=== PATIENT | female | born 1990 | race Caucasian/White ===

== ENCOUNTER 2017-07-23 21:59 | Emergency (ER) | payer MEDICAID ==
[~2017-07-23] VITALS: Ht 170.2 cm; Wt 84.9 kg
[2017-07-23 22:04] VITALS: BP 159/90
== END 2017-07-23 22:37 | disposition home or self-care (01) ==
LOC: ED 22:29
DX: S00.03XA Contusion of scalp, initial encounter (principal); E05.90 Thyrotoxicosis, unspecified without thyrotoxic crisis or storm; W01.0XXA Fall on same level from slipping, tripping and stumbling without subsequent striking against object, initial encounter; Y93.89 Activity, other specified; Y92.098 Other place in other non-institutional residence as the place of occurrence of the external cause; Y99.8 Other external cause status
CPT/HCPCS: 99281

== ENCOUNTER 2017-11-05 05:24 | Emergency (ER) | payer MEDICAID ==
[~2017-11-05] VITALS: Ht 170.2 cm; Wt 93.8 kg
[2017-11-05] MEDS ORDERED: PRENATAL VITAMINS (05:34)
[2017-11-05] MEDS ORDERED: AMOXICILLIN (05:34)
[2017-11-05 06:18] VITALS: BP 131/74
== END 2017-11-05 06:20 | disposition home or self-care (01) ==
LOC: ED 05:52
DX: O99.512 Diseases of the respiratory system complicating pregnancy, second trimester (principal); J02.0 Streptococcal pharyngitis; R59.1 Generalized enlarged lymph nodes; Z3A.18 18 weeks gestation of pregnancy
CPT/HCPCS: 99281

== ENCOUNTER 2017-12-22 11:02 | Outpatient (CLI) | payer MEDICAID ==
[~2017-12-22] VITALS: Ht 170.2 cm; Wt 102.7 kg
[~2017-12-22 11:02] MED LIST: AMOXICILLIN; PRENATAL VITAMINS
[2017-12-22 11:14] VITALS: BP 131/76
[2017-12-22 11:43] LABS: BASOPHILS # (AUTO) 0.07 x10^3/uL (0-0.1); BASOPHILS % (AUTO) 1 % (0-1); EOSINOPHILS # (AUTO) 0.08 x10^3/uL (0-0.4); EOSINOPHILS % (AUTO) 1 % (1-7); LYMPHOCYTES % (AUTO) 17 % (22-44); MD NO; MEAN CORPUSCULAR HEMOGLOBIN 27.9 pg (27.0-34.8); MEAN CORPUSCULAR HGB CONC 33.5 g/dL (32.4-35.8); MEAN CORPUSCULAR VOLUME 83.4 fL (80-100); MEAN PLATELET VOLUME 8.3 fL (7.4-10.4); MONOCYTES # (AUTO) 0.69 x10^3/uL (0.2-0.8); MONOCYTES % (AUTO) 5 % (2-9); NEUTROPHILS # (AUTO) 10.14 x10^3/uL (1.8-6.8); NEUTROPHILS % (AUTO) 76 % (42-75); PLATELET COUNT 272 x10^3/uL (130-400); RED BLOOD COUNT 4.48 x10^6/uL (3.82-5.3); RED CELL DISTRIBUTION WIDTH 13.8 % (9.6-15.2)
[2017-12-22] MEDS ORDERED: PREN1TAB60 PO (11:52)
[2017-12-22 11:54] LABS: ALANINE AMINOTRANSFERASE 17 U/L (12-78); ALBUMIN 2.8 g/dL (3.4-5.0); ANION GAP 7 mmol/L (5-15); CHLORIDE 108 mmol/L (98-107); CREATININE 0.47 mg/dL (0.55-1.02)
[2017-12-22 11:55] LABS: BILIRUBIN, DIRECT < 0.1 mg/dL (0.1-0.2)
[2017-12-22 11:57] LABS: ALKALINE PHOSPHATASE 83 U/L (45-117); BILIRUBIN,TOTAL 0.2 mg/dL (0.2-1.0)
== END 2017-12-22 13:13 | disposition home or self-care (01) ==
LOC: LDOP 11:02
PROVIDERS: ATTEND Obstetrics & Gynecology
DX: Z34.82 Encounter for supervision of other normal pregnancy, second trimester (principal); Z3A.24 24 weeks gestation of pregnancy
CPT/HCPCS: 36415; 59025; 80053; 81050; 82248; 82570; 83615; 84156; 84550; 85025; 99211; G0463

== ENCOUNTER 2018-03-30 11:16 | Outpatient (CLI) | payer MEDICAID ==
[~2018-03-30] VITALS: Ht 170.2 cm; Wt 121.8 kg
[~2018-03-30 11:16] MED LIST changes: +PREN1TAB60 PO
[2018-03-30 11:53] VITALS: BP 139/90
[2018-03-30 12:17] LABS: BASOPHILS # (AUTO) 0.12 x10^3/uL (0-0.1); BASOPHILS % (AUTO) 1 % (0-1); EOSINOPHILS # (AUTO) 0.11 x10^3/uL (0-0.4); EOSINOPHILS % (AUTO) 1 % (1-7); LYMPHOCYTES # (AUTO) 2.28 x10^3/uL (1-3.4); LYMPHOCYTES % (AUTO) 21 % (22-44); MD NO; MEAN CORPUSCULAR HEMOGLOBIN 27.2 pg (27.0-34.8); MEAN CORPUSCULAR HGB CONC 33.8 g/dL (32.4-35.8); MEAN CORPUSCULAR VOLUME 80.3 fL (80-100); MEAN PLATELET VOLUME 9.1 fL (7.4-10.4); MONOCYTES # (AUTO) 0.72 x10^3/uL (0.2-0.8); MONOCYTES % (AUTO) 7 % (2-9); NEUTROPHILS # (AUTO) 7.45 x10^3/uL (1.8-6.8); NEUTROPHILS % (AUTO) 70 % (42-75); PLATELET COUNT 326 x10^3/uL (130-400); RED CELL DISTRIBUTION WIDTH 14.9 % (9.6-15.2)
[2018-03-30 12:26] LABS: MICROSCOPIC NOT IND
[2018-03-30 12:27] LABS: ALANINE AMINOTRANSFERASE 15 U/L (12-78); ALBUMIN 2.3 g/dL (3.4-5.0); ANION GAP 12 mmol/L (5-15); CALCIUM 8.5 mg/dL (8.5-10.1); CHLORIDE 105 mmol/L (98-107); CREATININE 0.75 mg/dL (0.55-1.02)
[2018-03-30 12:44] LABS: ALKALINE PHOSPHATASE 188 U/L (45-117); BILIRUBIN,TOTAL 0.2 mg/dL (0.2-1.0); TOTAL PROTEIN 6.9 g/dL (6.4-8.2)
[2018-03-30 12:45] LABS: BILIRUBIN, DIRECT < 0.1 mg/dL (0.1-0.2)
[2018-03-31] MEDS ORDERED: RANI150T23 PO (15:29)
== END 2018-03-30 14:20 | disposition home or self-care (01) ==
LOC: LDOP 11:16
PROVIDERS: ATTEND Obstetrics & Gynecology
DX: O13.3 Gestational [pregnancy-induced] hypertension without significant proteinuria, third trimester (principal); Z3A.00 Weeks of gestation of pregnancy not specified
CPT/HCPCS: 36415; 59025; 80053; 81003; 82248; 82570; 83615; 84156; 84550; 85025; 99211; G0463

== ENCOUNTER 2018-03-31 11:17 | Inpatient (IN) | payer MEDICAID ==
[~2018-03-31] VITALS: Ht 170.2 cm; Wt 122.0 kg
[2018-03-31] MEDS ORDERED: OXYTOCIN 30U/ 0.9% NaCL 500ML 500 ML IV SCH (13:13)
[2018-03-31] MEDS ORDERED: NEWBORN KIT ONE ×2 (13:15)
[2018-03-31 13:19] VITALS: BP 157/104
[2018-03-31] MEDS ORDERED: LACTATED RINGERS 1,000 ML IVBOLUS ONE (13:30)
[2018-03-31] MEDS ORDERED: METOCLOPRAMIDE 5 MG/ML, 2ML IV ONE (13:30)
[2018-03-31] MEDS ORDERED: SODIUM CITRATE/CITRIC ACID 30 ML UDC PO ONE (13:30)
[2018-03-31] MEDS: LACTATED RINGERS 1,000 ML IV SCH ×4 (13:48→20:05)
[2018-03-31 14:01] LABS: BASOPHILS # (AUTO) 0.03 x10^3/uL (0-0.1); BASOPHILS % (AUTO) 0 % (0-1); EOSINOPHILS # (AUTO) 0.06 x10^3/uL (0-0.4); EOSINOPHILS % (AUTO) 1 % (1-7); LYMPHOCYTES # (AUTO) 2.17 x10^3/uL (1-3.4); LYMPHOCYTES % (AUTO) 18 % (22-44); MD NO; MEAN CORPUSCULAR HGB CONC 33.4 g/dL (32.4-35.8); MEAN CORPUSCULAR VOLUME 80.8 fL (80-100); MEAN PLATELET VOLUME 8.8 fL (7.4-10.4); MONOCYTES # (AUTO) 0.75 x10^3/uL (0.2-0.8); MONOCYTES % (AUTO) 6 % (2-9); NEUTROPHILS # (AUTO) 9.12 x10^3/uL (1.8-6.8); NEUTROPHILS % (AUTO) 75 % (42-75); PLATELET COUNT 332 x10^3/uL (130-400); RED CELL DISTRIBUTION WIDTH 14.5 % (9.6-15.2)
[2018-03-31 14:10] LABS: ALANINE AMINOTRANSFERASE 14 U/L (12-78); ALBUMIN 2.6 g/dL (3.4-5.0); ANION GAP 11 mmol/L (5-15); CALCIUM 8.3 mg/dL (8.5-10.1); CHLORIDE 109 mmol/L (98-107)
[2018-03-31] MEDS ORDERED: SODIUM CITRATE/CITRIC ACID 30 ML UDC ONE (14:13)
[2018-03-31] MEDS ORDERED: METOCLOPRAMIDE 5 MG/ML, 2ML ONE (14:13)
[2018-03-31 14:15] LABS: ALKALINE PHOSPHATASE 203 U/L (45-117); BILIRUBIN,TOTAL 0.4 mg/dL (0.2-1.0); TOTAL PROTEIN 7.2 g/dL (6.4-8.2)
[2018-03-31] MEDS ORDERED: OXYTOCIN 30U/ 0.9% NaCL 500ML 500 ML ONE (14:17)
[2018-03-31 14:21] LABS: BILIRUBIN, DIRECT < 0.1 mg/dL (0.1-0.2)
[2018-03-31] MEDS ORDERED: OXYTOCIN 10 UNITS/ML, 1ML ONE (15:03)
[2018-03-31] MEDS ORDERED: EPHEDRINE 50 MG/ML, 1ML ONE (15:03)
[2018-03-31] MEDS ORDERED: CEFAZOLIN 1,000 MG ONE (15:03)
[2018-03-31] MEDS ORDERED: EPINEPHRINE 1 MG/ML, 1ML ONE (15:03)
[2018-03-31] MEDS ORDERED: BUPIVACAINE/PF 0.5% ONE (15:04)
[2018-03-31] MEDS ORDERED: FENTANYL PF 100 MCG/2ML ONE (15:04)
[2018-03-31] MEDS ORDERED: morphine SULFATE 10 MG/ML, 1ML ONE (15:24)
[2018-03-31] MEDS ORDERED: RANI150T23 PO (15:29)
[2018-03-31 18:37] LABS: MICROSCOPIC INDICATED
[2018-03-31 19:38] VITALS: BP 144/83
[2018-03-31] MEDS: OXYTOCIN 30U/ 0.9% NaCL 500ML 500 ML IV SCH (20:05)
[2018-03-31] MEDS ORDERED: SIMETHICONE 80 MG CHEW TAB PO PRN (20:30)
[2018-03-31] MEDS ORDERED: CALCIUM CARBONATE 500 MG TAB.CHEW PO PRN (20:30)
[2018-03-31] MEDS ORDERED: morphine SULFATE 10 MG/ML, 1ML IVPush PRN ×2 (20:30)
[2018-03-31] MEDS ORDERED: BISACODYL 10 MG SUPP PR PRN (20:30)
[2018-03-31] MEDS ORDERED: ONDANSETRON 2MG/ML, 2ML IV PRN (20:30)
[2018-03-31] MEDS ORDERED: MISOPROSTOL 200 MCG TABLET PR PRN (20:30)
[2018-03-31] MEDS: ACETAMINOPHEN 325 MG TABLET PO SCH (20:48)
[2018-03-31] MEDS: OXYcodone IR 5MG TABLET PO PRN (21:27)
[2018-03-31] MEDS: DOCUSATE 100 MG CAPSULE PO PRN (21:27)
[2018-04-01] VITALS (7 sets, daily range): BP systolic 137–159; BP diastolic 85–96
[2018-04-01 01:46] LABS: BASOPHILS # (AUTO) 0.07 x10^3/uL (0-0.1); BASOPHILS % (AUTO) 1 % (0-1); EOSINOPHILS # (AUTO) 0.01 x10^3/uL (0-0.4); EOSINOPHILS % (AUTO) 0 % (1-7); LYMPHOCYTES # (AUTO) 1.85 x10^3/uL (1-3.4); LYMPHOCYTES % (AUTO) 14 % (22-44); MD NO; MEAN CORPUSCULAR HEMOGLOBIN 26.5 pg (27.0-34.8); MEAN CORPUSCULAR VOLUME 80.3 fL (80-100); MEAN PLATELET VOLUME 8.9 fL (7.4-10.4); MONOCYTES # (AUTO) 0.53 x10^3/uL (0.2-0.8); MONOCYTES % (AUTO) 4 % (2-9); NEUTROPHILS # (AUTO) 10.58 x10^3/uL (1.8-6.8); NEUTROPHILS % (AUTO) 81 % (42-75); PLATELET COUNT 283 x10^3/uL (130-400); RED BLOOD COUNT 4.16 x10^6/uL (3.82-5.3); RED CELL DISTRIBUTION WIDTH 14.9 % (9.6-15.2)
[2018-04-01] MEDS: OXYcodone IR 5MG TABLET PO PRN ×5 (01:53→18:54)
[2018-04-01] MEDS: ACETAMINOPHEN 325 MG TABLET PO SCH ×4 (02:41→21:26)
[2018-04-01] MEDS: LACTATED RINGERS 1,000 ML IV SCH ×2 (04:05→06:05)
[2018-04-01 05:59] LABS: BASOPHILS # (AUTO) 0.03 x10^3/uL (0-0.1); BASOPHILS % (AUTO) 0 % (0-1); EOSINOPHILS # (AUTO) 0.01 x10^3/uL (0-0.4); EOSINOPHILS % (AUTO) 0 % (1-7); LYMPHOCYTES # (AUTO) 1.47 x10^3/uL (1-3.4); LYMPHOCYTES % (AUTO) 11 % (22-44); MD NO; MEAN CORPUSCULAR HGB CONC 33.4 g/dL (32.4-35.8); MEAN CORPUSCULAR VOLUME 80.8 fL (80-100); MEAN PLATELET VOLUME 8.9 fL (7.4-10.4); MONOCYTES # (AUTO) 0.73 x10^3/uL (0.2-0.8); MONOCYTES % (AUTO) 6 % (2-9); NEUTROPHILS # (AUTO) 10.89 x10^3/uL (1.8-6.8); NEUTROPHILS % (AUTO) 83 % (42-75); PLATELET COUNT 262 x10^3/uL (130-400); RED BLOOD COUNT 4.07 x10^6/uL (3.82-5.3); RED CELL DISTRIBUTION WIDTH 14.8 % (9.6-15.2)
[2018-04-01] MEDS: OXYTOCIN 30U/ 0.9% NaCL 500ML 500 ML IV SCH (06:05)
[2018-04-01] MEDS: DOCUSATE 100 MG CAPSULE PO PRN ×2 (08:39→21:26)
[2018-04-01] MEDS: PRENATAL VIT/IRON/FA 1 EACH TABLET PO SCH (08:39)
[2018-04-02 01:01] VITALS: BP 142/83
[2018-04-02] MEDS: ACETAMINOPHEN 325 MG TABLET PO SCH ×4 (04:14→22:29)
[2018-04-02 04:17] VITALS: BP 147/88
[2018-04-02 07:30] VITALS: BP 146/85
[2018-04-02] MEDS: PRENATAL VIT/IRON/FA 1 EACH TABLET PO SCH (09:00)
[2018-04-02 13:32] VITALS: BP 145/87
[2018-04-02] MEDS: OXYcodone IR 5MG TABLET PO PRN (16:00)
[2018-04-02] MEDS: DOCUSATE 100 MG CAPSULE PO PRN (16:01)
[2018-04-02 21:05] VITALS: BP 133/91
[2018-04-03 00:34] VITALS: BP 138/85
[2018-04-03] MEDS: ACETAMINOPHEN 325 MG TABLET PO SCH ×2 (05:45→12:01)
[2018-04-03 05:47] VITALS: BP 136/83
[2018-04-03 07:46] VITALS: BP 143/84
[2018-04-03] MEDS: DOCUSATE 100 MG CAPSULE PO PRN (08:43)
[2018-04-03] MEDS: PRENATAL VIT/IRON/FA 1 EACH TABLET PO SCH (08:44)
[2018-04-03] MEDS ORDERED: IBUP-1222 PO (10:47)
[2018-04-03] MEDS ORDERED: DOCU-131 PO (10:47)
[2018-04-03] MEDS ORDERED: OXYC-302 PO (10:47)
== END 2018-04-03 14:10 | disposition home or self-care (01) | DRG 766 ==
LOC: LDIP 12:50 → 2NW 19:31
PROVIDERS: ADMIT Obstetrics & Gynecology; ATTEND Obstetrics & Gynecology
PROC: 10D00Z1 Extraction of Products of Conception, Low, Open Approach (ICD-10-PCS; principal; 2018-03-31)
PROC: 0DNW0ZZ Release Peritoneum, Open Approach (ICD-10-PCS; 2018-03-31)
PROC: 0T9B70Z Drainage of Bladder with Drainage Device, Via Natural or Artificial Opening (ICD-10-PCS; 2018-03-31)
DX: O13.4 Gestational [pregnancy-induced] hypertension without significant proteinuria, complicating childbirth (principal); K66.0 Peritoneal adhesions (postprocedural) (postinfection); O34.211 Maternal care for low transverse scar from previous cesarean delivery; O69.81X0 Labor and delivery complicated by cord around neck, without compression, not applicable or unspecified; Z3A.38 38 weeks gestation of pregnancy; Z37.0 Single live birth
CPT/HCPCS: 36415; 80053; 81001; 82248; 84550; 85025; 86850; 86900; J0171; J0690; J3010; J3490; J2590; J2765; J7120

== ENCOUNTER 2018-12-04 20:46 | Inpatient (IN) | payer MEDICAID ==
[~2018-12-04] VITALS: Ht 170.2 cm; Wt 108.8 kg
[~2018-12-04 20:46] MED LIST changes: +DOCU-131 PO; +IBUP-1222 PO; +OXYC-302 PO; +RANI150T23 PO
--- NOTE | 2018-12-04 21:45 | NUR ---
PT AMBULATED TO ROOM WITH STEADY GAIT FROM [facility]. 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 PT STATES HAVING HEART "PALPATATIONS" INTERMITTENTLY SINCE HER SON WAS BORN X8 MONTHS AGO, PT STATES PRIOR SAME EVENTS X5 YEARS AGO WHERE PT WAS TOLD "THERE WAS NOTHING WRONG WITH MY HEART." PT STATES "IT FEELS LIKE IT SKIPS A BEAT." PT DENIES CP, SOB. PT A/OX4, BREATHING E/U. PT CONVERSING WELL . Addendum: 12/04/18 at 2254 by [email or web address] EKG DONE IN TRIAGE.
--- NOTE | 2018-12-04 22:12 | NUR ---
PT IN BED RESTING, APPEARS COMFORTABLE. CONTINUES ON MONITOR. AWAITING MD DIAZ.
--- NOTE | 2018-12-04 22:30 | NUR ---
NO CHANGES TO PT. PT CONTINUES TO WAIT FOR MD DIAZ.
--- NOTE | 2018-12-04 22:57 | NUR ---
PROVIDER TO BEDSIDE FOR PT EVAL COMPLETE. PT TO HAVE BLOOD DRAW.
[2018-12-04 23:20] LABS: BASOPHILS # (AUTO) 0.03 x10^3/uL (0-0.1); BASOPHILS % (AUTO) 0 % (0-1); EOSINOPHILS # (AUTO) 0.19 x10^3/uL (0-0.4); EOSINOPHILS % (AUTO) 2 % (1-7); LYMPHOCYTES # (AUTO) 4.48 x10^3/uL (1-3.4); LYMPHOCYTES % (AUTO) 47 % (22-44); MD NO; MEAN CORPUSCULAR HEMOGLOBIN 24.7 pg (27.0-34.8); MEAN CORPUSCULAR HGB CONC 32.8 g/dL (32.4-35.8); MEAN CORPUSCULAR VOLUME 75.5 fL (80-100); MEAN PLATELET VOLUME 8.3 fL (7.4-10.4); MONOCYTES # (AUTO) 1.01 x10^3/uL (0.2-0.8); MONOCYTES % (AUTO) 11 % (2-9); NEUTROPHILS # (AUTO) 3.78 x10^3/uL (1.8-6.8); NEUTROPHILS % (AUTO) 40 % (42-75); PLATELET COUNT 307 x10^3/uL (130-400); RED BLOOD COUNT 5.11 x10^6/uL (3.82-5.3); RED CELL DISTRIBUTION WIDTH 13.9 % (9.6-15.2)
--- NOTE | 2018-12-04 23:21 | NUR ---
PT BLOOD DRAWN.
[2018-12-04 23:32] LABS: ALANINE AMINOTRANSFERASE 26 U/L (12-78); ALBUMIN 3.2 g/dL (3.4-5.0); ANION GAP 5 mmol/L (5-15); CALCIUM 8.3 mg/dL (8.5-10.1); CHLORIDE 108 mmol/L (98-107); CREATININE 0.63 mg/dL (0.55-1.02); T4 (THYROXINE) 21.2 mcg/dL (4.8-13.9)
--- NOTE | 2018-12-04 23:35 | NUR ---
PT RESTING COMFORTABLY, CONTINUES ON CARDIAC AND VS MONITORING. PT REPORTS HR ELEVATED WITH PRIOR PALPATATION EVENTS, PT [place] AT 115, PT DENIES HOME MEDS. PT APPEARS COMFORTABLE, CALM AND COOPERATIVE, PT SO AT BEDSIDE, BOTH PT AND SO WATCHING TV. PT DENIES NEEDS AT THIS TIME, BREATHING E/U. WILL CONTINUE TO MONITOR.
[2018-12-04 23:37] LABS: ALKALINE PHOSPHATASE 101 U/L (45-117); BILIRUBIN,TOTAL 0.3 mg/dL (0.2-1.0); TOTAL PROTEIN 7.2 g/dL (6.4-8.2); TROPONIN I < 0.015 ng/mL (0.000-0.045)
[2018-12-04 23:43] LABS: THYROID STIMULATING HORMONE < 0.005 mIU/L (0.358-3.740)
--- NOTE | 2018-12-04 23:48 | NUR ---
MD TO BEDSIDE FOR UPDATE.
[2018-12-05] MEDS ORDERED: PROPRANOLOL 1 MG/ML, 1ML IVPush ONE
--- NOTE | 2018-12-05 00:20 | NUR ---
REPORT TO VENANCIO COX. PT TO HAVE IV AND MEDS THEN TO GO TO ROOM.
--- NOTE | 2018-12-05 00:42 | NUR ---
H TO BEDSIDE FOR PT EVAL COMPLETE. PT RECIEVED PTU MEDICATION PER ORDERS, SEE EMAR. PT TO HAVE IV BEFORE RECIEVEING PROPRANOLOL AND BEING TRANSFERED TO ROOM. PT TO GO TO CCU, AWAITING TO GIVE REPORT.
--- NOTE | 2018-12-05 00:50 | NUR ---
IV UNSUCCESSFUL ATTEMPT X1, MICHAEL RN TO BEDSIDE FOR IV ATTEMPT.
--- NOTE | 2018-12-05 00:57 | NUR ---
PROVIDER MARIA ESTHER TO BEDSIDE FOR UPDATE. PT TO GO TO CCU, IV IN PLACE BY MICHAEL COX. PER VERBAL ORDER FROM PROVIDER MARIA ESTHER DO NOT GIVE PROPRANOLOL 1MG IV AND JUST GIVE ORAL PROPRANOLOL 60MG. IV PROPRANOLOL HELD AND WASTED. PT TO HAVE ORAL.
[2018-12-05] MEDS ORDERED: HYDROCORTISONE IVPush ONE (01:00)
[2018-12-05] MEDS ORDERED: ACETAMINOPHEN 325 MG TABLET PO PRN (01:00)
[2018-12-05] MEDS ORDERED: MAGNESIUM SULFATE PMX 2GM/50ML 50 ML IV ONE (01:00)
[2018-12-05] MEDS ORDERED: ONDANSETRON 2MG/ML, 2ML IVPush PRN (01:00)
[2018-12-05] MEDS ORDERED: PROPYLTHIOURACIL 50 MG TABLET PO ONE ×2 (01:00)
[2018-12-05] MEDS ORDERED: POLYETHYLENE GLYCOL 17 GM PACKET PO PRN (01:00)
[2018-12-05] MEDS ORDERED: BISACODYL 10 MG SUPP PR PRN (01:00)
--- NOTE | 2018-12-05 01:25 | NUR ---
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 WARM BLANKETS PROVIDED TO PT PER PT REQUEST. NO DISTRESS NOTED. CALL LIGHT IN REACH.
--- NOTE | 2018-12-05 01:31 | NUR ---
HOSPITAL BED REQUESTED FOR PT. AWAITING MEDS FROM PHARMACY.
--- NOTE | 2018-12-05 01:45 | NUR ---
PHARMACY CALLED R/T NOT RECIEVING MEDS FOR PT. PHARMACY SENDING PTU AND PROPRANOLOL TO ED FOR PT. PER [place] IN PHARMACY PT MAG AND SOLU SENT TO TELE R/T ROOM NUMBER IN TELE, REX IN TELE CALLED, THIS RN REQUESTED MAG AND SOLU SENT TO ED TO BE GIVEN TO PT. REX STATES MEDS WILL BE SENT, AWAITING MEDS.
[2018-12-05] MEDS: PROPRANOLOL 60 MG TABLET PO SCH ×6 (02:00→22:58)
--- NOTE | 2018-12-05 02:00 | NUR ---
MEDS RECIEVED FROM PHARMACY AND TELE, PT RECIEVED MEDS PER ORDERS, SEE EMAR. PT SITTING UP IN BED, HR 120'S ON MONITOR. PT TOOK MEDS WELL.
[2018-12-05] MEDS ORDERED: HEPARIN 5,000 UNITS/ML, 1ML ONE ×2 (02:10→08:32)
[2018-12-05] MEDS: HEPARIN 5,000 UNITS/ML, 1ML SQ SCH ×3 (02:17→16:51)
--- NOTE | 2018-12-05 02:31 | NUR ---
pt recieved all meds per orders, see emar. pt VSS, pt continues on cardiac and VS monitoring, SO at bedside. pt is calm and cooperative, no distress noted. call light in reach.
--- NOTE | 2018-12-05 02:33 | NUR ---
report to taz COX for lunch relief.
--- NOTE | 2018-12-05 03:09 | NUR ---
REPORT FROM SWATHI COX, NO CHANGES.
--- NOTE | 2018-12-05 03:13 | NUR ---
PT CONTINUES TO REST IN BED, WATCHING TV WITH SO AT BEDSIDE. PT CONTINUES ON CARDIAC AND VS MONITORING, HR DECRASED TO AROUND 100. PT REPORTS FEELING RELIEF OF THE CHEST PALPATATIONS WITH DECRASED HR. PT DENIES NEEDS AT THIS TIME, PT ALERT AND PLEASANT. CALL LIGHT IN REACH.
--- NOTE | 2018-12-05 04:03 | NUR ---
PT SLEEPING, SO AT BEDSIDE. MAG CONTINUES TO INFUSE. VSS, WILL CONTINUE TO MONITOR.
--- NOTE | 2018-12-05 04:11 | NUR ---
MAG INFUSION COMPLETE. NO CHANGE TO PT. PT CONTINUES ON MONITOR. NO DISTRESS NOTED.
--- NOTE | 2018-12-05 04:46 | NUR ---
PT CONTINUES TO SLEEP, NO CHANGES. WILL MONITOR.
--- NOTE | 2018-12-05 04:54 | NUR ---
LAB AT BEDSIDE FOR PT AM BLOOD DRAW.
--- NOTE | 2018-12-05 04:59 | NUR ---
REQUESTED PROPRANOLOL AM DOSE FROM PHARMACY.
[2018-12-05 05:24] LABS: BASOPHILS # (AUTO) 0.01 x10^3/uL (0-0.1); BASOPHILS % (AUTO) 0 % (0-1); EOSINOPHILS # (AUTO) 0.01 x10^3/uL (0-0.4); EOSINOPHILS % (AUTO) 0 % (1-7); LYMPHOCYTES # (AUTO) 1.37 x10^3/uL (1-3.4); LYMPHOCYTES % (AUTO) 16 % (22-44); MD NO; MEAN CORPUSCULAR HEMOGLOBIN 24.5 pg (27.0-34.8); MEAN CORPUSCULAR HGB CONC 32.7 g/dL (32.4-35.8); MEAN CORPUSCULAR VOLUME 75.1 fL (80-100); MEAN PLATELET VOLUME 8.3 fL (7.4-10.4); MONOCYTES # (AUTO) 0.14 x10^3/uL (0.2-0.8); MONOCYTES % (AUTO) 2 % (2-9); NEUTROPHILS # (AUTO) 6.88 x10^3/uL (1.8-6.8); NEUTROPHILS % (AUTO) 82 % (42-75); PLATELET COUNT 323 x10^3/uL (130-400); RED BLOOD COUNT 5.45 x10^6/uL (3.82-5.3); RED CELL DISTRIBUTION WIDTH 13.6 % (9.6-15.2)
--- NOTE | 2018-12-05 05:26 | NUR ---
PT RECIEVED PROPRANOLOL PER ORDERS, SEE EMAR. NO CHANGES TO PT. WILL CONTINUE TO MONIOTR.
[2018-12-05 05:35] LABS: ALBUMIN 3.3 g/dL (3.4-5.0); ANION GAP 7 mmol/L (5-15); CALCIUM 8.7 mg/dL (8.5-10.1); CHLORIDE 110 mmol/L (98-107)
[2018-12-05 05:48] LABS: ALANINE AMINOTRANSFERASE 30 U/L (12-78); ALKALINE PHOSPHATASE 106 U/L (45-117); BILIRUBIN,TOTAL 0.5 mg/dL (0.2-1.0); CREATININE 0.42 mg/dL (0.55-1.02); FREE T4 (FREE THYROXINE) 5.43 ng/dL (0.76-1.46); TOTAL PROTEIN 7.6 g/dL (6.4-8.2)
[2018-12-05 05:53] LABS: THYROID STIMULATING HORMONE < 0.005 mIU/L (0.358-3.740)
--- NOTE | 2018-12-05 06:01 | NUR ---
PT SLEEPING WITH SO AT BEDSIDE. PT CONTINUES ON MONITOR. NO DISTRESS NOTED. CALL LIGHT IN REACH.
--- NOTE | 2018-12-05 06:44 | NUR ---
SECOND REQUEST FOR HOSPITAL BED MADE FOR PT.
--- NOTE | 2018-12-05 06:53 | NUR ---
REPORT TO TRISTAN COX.
--- NOTE | 2018-12-05 06:56 | NUR ---
ASSUMED PATIENT CARE. 0700 MEDS REQUESTED FROM PHARMACY. PATIENT BS REPORT GIVEN. PATIENT WAKES EASILY. VSS.
[2018-12-05] MEDS: PROPYLTHIOURACIL 50 MG TABLET PO SCH ×4 (07:07→23:55)
--- NOTE | 2018-12-05 07:49 | NUR ---
[facility] CALLED AND REPORTED THAT SHE IS UNABLE TO COMPLETE THE THYROID SCAN BECAUSE THE PATIENT NEEDS TO BE OFF OF PTU FOR THREE DAYS AND SHE WOULD NEED TO SPECIAL ORDER MEDICATION FOR THE EXAM. SOONEST THE MEDICATION WOULD BE IN IS 6 DAYS FROM NEGAR. MD AGUILAR NOTIFIED.
--- NOTE | 2018-12-05 07:52 | NUR ---
IMAGING CANCELED PER MD AGUILAR'S REQUEST
[2018-12-05] MEDS ORDERED: FAMOTIDINE 20 MG TABLET ONE (08:32)
--- NOTE | 2018-12-05 08:34 | NUR ---
MEDS ORDERED FROM PHARM FOR 9 AM
[2018-12-05] MEDS: SENNA/DOCUSATE TABLET PO SCH (09:00)
[2018-12-05] MEDS: SODIUM CHLORIDE FLUSH 10ML SYR IVF SCH ×2 (09:03→22:59)
[2018-12-05] MEDS: HYDROCORTISONE 100 MG INJ. IVPush SCH ×2 (09:03→16:51)
[2018-12-05] MEDS: FAMOTIDINE 20 MG/2 ML IVPush SCH ×2 (09:03→20:39)
[2018-12-05] MEDS ORDERED: SENNA/DOCUSATE TABLET ONE (09:05)
--- NOTE | 2018-12-05 09:11 | NUR ---
PATIENT GIVEN MEAL TRAY, ATE WELL. AT BS. PLAN OF CARE DISCUSSED WITH PATIENT AND . PATIENT ALERT, COOPERATIVE, ORIENTED
--- NOTE | 2018-12-05 10:50 | NUR ---
ORDERED 11 AM PHARM MED
--- NOTE | 2018-12-05 12:30 | NUR ---
LUNCH RN: REGULAR DIET TRAY DELIVERED TO PT. PT RESTING IN ROOM WITH NO COMPLAINTS AT THIS TIME
[2018-12-05] MEDS ORDERED: POTASSIUM IODIDE ORAL.SOLN 1 GM/ML PO ONE (14:00)
--- NOTE | 2018-12-05 15:14 | NUR ---
REPORT TO ERNESTINA COX.
[2018-12-05] MEDS ORDERED: PROPYLTHIOURACIL 50 MG TABLET PO SCH (16:00)
[2018-12-05 16:24] VITALS: BP 155/73
[2018-12-05] MEDS ORDERED: POTASSIUM IODIDE ORAL.SOLN 1 GM/ML PO SCH ×2 (16:30→19:00)
[2018-12-05] MEDS ORDERED: PROPRANOLOL 10 MG TABLET ONE (16:52)
[2018-12-05] MEDS: POTASSIUM IODIDE ORAL.SOLN 1 GM/ML PO SCH (18:34)
[2018-12-05] MEDS: CHOLESTYRAMINE LIGHT 4GM PACKET PO SCH (20:39)
[2018-12-06] MEDS: HYDROCORTISONE 100 MG INJ. IVPush SCH ×2 (01:11→08:16)
[2018-12-06] MEDS: HEPARIN 5,000 UNITS/ML, 1ML SQ SCH ×2 (01:12→08:16)
[2018-12-06] MEDS: POTASSIUM IODIDE ORAL.SOLN 1 GM/ML PO SCH ×2 (01:12→08:03)
[2018-12-06] MEDS: PROPRANOLOL 60 MG TABLET PO SCH ×4 (03:04→11:55)
[2018-12-06 04:34] LABS: BASOPHILS # (AUTO) 0.03 x10^3/uL (0-0.1); BASOPHILS % (AUTO) 0 % (0-1); EOSINOPHILS # (AUTO) 0.01 x10^3/uL (0-0.4); EOSINOPHILS % (AUTO) 0 % (1-7); LYMPHOCYTES # (AUTO) 2.19 x10^3/uL (1-3.4); LYMPHOCYTES % (AUTO) 28 % (22-44); MD NO; MEAN CORPUSCULAR HEMOGLOBIN 25.2 pg (27.0-34.8); MEAN CORPUSCULAR HGB CONC 33.3 g/dL (32.4-35.8); MEAN CORPUSCULAR VOLUME 75.6 fL (80-100); MEAN PLATELET VOLUME 8.2 fL (7.4-10.4); MONOCYTES # (AUTO) 0.26 x10^3/uL (0.2-0.8); MONOCYTES % (AUTO) 3 % (2-9); NEUTROPHILS # (AUTO) 5.46 x10^3/uL (1.8-6.8); NEUTROPHILS % (AUTO) 69 % (42-75); PLATELET COUNT 272 x10^3/uL (130-400); RED BLOOD COUNT 5.05 x10^6/uL (3.82-5.3); RED CELL DISTRIBUTION WIDTH 13.6 % (9.6-15.2)
[2018-12-06 04:45] LABS: ANION GAP 8 mmol/L (5-15); CALCIUM 8.7 mg/dL (8.5-10.1); CHLORIDE 112 mmol/L (98-107)
[2018-12-06 04:59] LABS: CREATININE 0.44 mg/dL (0.55-1.02); FREE T4 (FREE THYROXINE) 4.47 ng/dL (0.76-1.46)
[2018-12-06 05:18] LABS: THYROID STIMULATING HORMONE < 0.005 mIU/L (0.358-3.740)
[2018-12-06] MEDS: PROPYLTHIOURACIL 50 MG TABLET PO SCH (06:08)
[2018-12-06] MEDS ORDERED: POTASSIUM PHOSPHATE 44 MEQ in SODIUM CHLORIDE 0.9% 500 ML IV ONE (06:30)
[2018-12-06] MEDS ORDERED: MAGNESIUM SULFATE PMX 2GM/50ML 50 ML IV ONE (06:30)
[2018-12-06] MEDS: CHOLESTYRAMINE LIGHT 4GM PACKET PO SCH (08:13)
[2018-12-06] MEDS: SODIUM CHLORIDE FLUSH 10ML SYR IVF SCH (08:15)
[2018-12-06] MEDS: FAMOTIDINE 20 MG/2 ML IVPush SCH (08:16)
[2018-12-06] MEDS: SENNA/DOCUSATE TABLET PO SCH (08:17)
[2018-12-06] MEDS ORDERED: METH10TA6 PO (11:11)
[2018-12-06] MEDS ORDERED: PROP20TA PO (11:11)
[2018-12-06] MEDS ORDERED: METHIMAZOLE 5 MG TAB PO SCH (11:30)
== END 2018-12-06 12:37 | disposition home or self-care (01) | DRG 644 ==
LOC: ED 23:00 → 5SO 12-05 00:10 → EDIP 12-05 01:59 → CCU 12-05 16:01 → DCLOUNGE 12-06 12:28
PROVIDERS: ADMIT Internal Medicine; ATTEND Internal Medicine
DX: E05.01 Thyrotoxicosis with diffuse goiter with thyrotoxic crisis or storm (principal); E44.1 Mild protein-calorie malnutrition; F12.90 Cannabis use, unspecified, uncomplicated; I10 Essential (primary) hypertension; Z82.49 Family history of ischemic heart disease and other diseases of the circulatory system; Z83.3 Family history of diabetes mellitus; Z87.891 Personal history of nicotine dependence; Z68.37 Body mass index [BMI] 37.0-37.9, adult
CPT/HCPCS: 36415; 99291; J3490; 71046; 76536; 80048; 80053; 82728; 83540; 83550; 83735; 84100; 84436; 84439; 84443; 84481; 84484; 84703; 85025; 87081; 93005; G0378; J1644; J1720; J3475; J7040

== ENCOUNTER 2019-01-19 13:55 | Emergency (ER) | payer MEDICAID ==
[~2019-01-19] VITALS: Ht 170.2 cm; Wt 115.6 kg
[~2019-01-19 13:55] MED LIST changes: +METH10TA6 PO; +PROP20TA PO
[2019-01-19 14:40] LABS: BASOPHILS # (AUTO) 0.02 x10^3/uL (0-0.1); BASOPHILS % (AUTO) 0 % (0-1); EOSINOPHILS # (AUTO) 0.26 x10^3/uL (0-0.4); EOSINOPHILS % (AUTO) 2 % (1-7); LYMPHOCYTES # (AUTO) 3.31 x10^3/uL (1-3.4); LYMPHOCYTES % (AUTO) 22 % (22-44); MD NO; MEAN CORPUSCULAR HEMOGLOBIN 25.4 pg (27.0-34.8); MEAN CORPUSCULAR HGB CONC 33.1 g/dL (32.4-35.8); MEAN CORPUSCULAR VOLUME 76.7 fL (80-100); MEAN PLATELET VOLUME 7.6 fL (7.4-10.4); MONOCYTES # (AUTO) 0.65 x10^3/uL (0.2-0.8); MONOCYTES % (AUTO) 4 % (2-9); NEUTROPHILS # (AUTO) 10.65 x10^3/uL (1.8-6.8); NEUTROPHILS % (AUTO) 72 % (42-75); PLATELET COUNT 404 x10^3/uL (130-400); RED BLOOD COUNT 5.17 x10^6/uL (3.82-5.3); RED CELL DISTRIBUTION WIDTH 16.3 % (9.6-15.2)
[2019-01-19 14:52] LABS: ALANINE AMINOTRANSFERASE 55 U/L (12-78); ALBUMIN 3.5 g/dL (3.4-5.0); ANION GAP 8 mmol/L (5-15); CALCIUM 8.2 mg/dL (8.5-10.1); CHLORIDE 106 mmol/L (98-107); CREATININE 0.66 mg/dL (0.55-1.02)
[2019-01-19 14:57] LABS: CULTURE INDICATED? YES; MICROSCOPIC INDICATED
[2019-01-19 14:58] LABS: ALKALINE PHOSPHATASE 134 U/L (45-117); BILIRUBIN,TOTAL 0.4 mg/dL (0.2-1.0); TOTAL PROTEIN 7.7 g/dL (6.4-8.2)
[2019-01-19] MEDS ORDERED: ONDANSETRON 2MG/ML, 2ML IVPush ONE (16:30)
[2019-01-19] MEDS ORDERED: HYDROmorphone 2 MG/ML, 1ML IVPush PRN (16:30)
[2019-01-19] MEDS ORDERED: OMNIPAQUE 350 MG/ML, 100ML BOTTLE ONE (16:37)
[2019-01-19] MEDS ORDERED: HYDROmorphone 1 MG/ML, 1ML ONE (17:06)
[2019-01-19] MEDS ORDERED: ONDANSETRON 2MG/ML, 2ML ONE (17:06)
[2019-01-19 17:16] VITALS: BP 142/79
== END 2019-01-19 18:24 | disposition home or self-care (01) ==
LOC: ED 15:56
DX: N20.2 Calculus of kidney with calculus of ureter (principal); I10 Essential (primary) hypertension; E05.90 Thyrotoxicosis, unspecified without thyrotoxic crisis or storm; Z87.891 Personal history of nicotine dependence; Z98.890 Other specified postprocedural states
CPT/HCPCS: 36415; 74177; 80053; 81001; 83690; 84703; 85025; 87086; 96374; 96375; 99284; J1170; J2405; Q9967

== ENCOUNTER 2019-06-20 08:01 | Emergency (ER) | payer MEDICAID, OTHER ==
[~2019-06-20] VITALS: Ht 170.2 cm; Wt 122.9 kg
[2019-06-20 13:17] VITALS: BP 122/65
== END 2019-06-20 13:41 | disposition home or self-care (01) ==
LOC: ED 11:16
DX: N93.8 Other specified abnormal uterine and vaginal bleeding (principal); D64.9 Anemia, unspecified; R00.2 Palpitations; Z98.890 Other specified postprocedural states
CPT/HCPCS: 36415; 76830; 80048; 81001; 82040; 82728; 83540; 83550; 84439; 84443; 84466; 84484; 84702; 85025; 86850; 86900; 86923; 93005; 99284; P9016

== ENCOUNTER 2020-01-21 06:07 | Inpatient (IN) | payer BC, OTHER ==
[~2020-01-21] VITALS: Ht 170.2 cm; Wt 127.0 kg
[~2020-01-21 06:07] MED LIST changes: +METO200T47 PO; +RANI-467 PO; -RANI150T23 PO
[2020-01-21 06:35] VITALS: BP 155/98
[2020-01-21] MEDS ORDERED: LACTATED RINGERS 1,000 ML IV SCH (06:38)
[2020-01-21] MEDS ORDERED: PROPOFOL 50 ML ONE ×3 (06:56→10:50)
[2020-01-21] MEDS ORDERED: MIDAZOLAM 1 MG/ML, 2ML ONE (06:56)
[2020-01-21] MEDS ORDERED: FENTANYL PF 250 MCG/5ML ONE (06:56)
[2020-01-21 07:07] LABS: HCG UR SG 1.025 (1.003-1.030)
[2020-01-21] MEDS ORDERED: DEXAMETHASONE 4 MG/ML, 1ML ONE ×4 (07:34→10:54)
[2020-01-21] MEDS ORDERED: PROPOFOL 10 MG/ML, 20ML ONE (07:34)
[2020-01-21] MEDS ORDERED: SUCCINYLCHOLINE 20 MG/ML, 10ML ONE ×2 (07:34→10:54)
[2020-01-21] MEDS ORDERED: ROCURONIUM 10MG/ML,5ML ONE ×2 (07:34→10:38)
[2020-01-21] MEDS ORDERED: ONDANSETRON 2MG/ML, 2ML ONE (07:34)
[2020-01-21] MEDS ORDERED: EPHEDRINE 50 MG/ML, 1ML IM PRN ×2 (08:00→12:30)
[2020-01-21] MEDS ORDERED: OXYcodone 5 MG/5 ML ORAL.SOL UDC PO PRN ×2 (08:00→12:30)
[2020-01-21] MEDS ORDERED: HYDROmorphone 2 MG/ML, 1ML IVPush PRN ×2 (08:00→12:30)
[2020-01-21] MEDS ORDERED: METOPROLOL 1 MG/ML, 5ML IV PRN ×2 (08:00→12:30)
[2020-01-21] MEDS ORDERED: MEPERIDINE/PF 25MG/ML,1ML IVPush PRN ×2 (08:00→12:30)
[2020-01-21] MEDS ORDERED: PROMETHAZINE 25 MG/ML, 1ML IV PRN ×2 (08:00→12:30)
[2020-01-21] MEDS ORDERED: FENTANYL PF 100 MCG/2ML IV PRN (08:00)
[2020-01-21] MEDS ORDERED: ONDANSETRON ODT 8 MG PO PRN ×2 (08:00→12:30)
[2020-01-21] MEDS ORDERED: DIAZEPAM 5 MG/ML, 2ML IVPush PRN ×2 (08:00→12:30)
[2020-01-21] MEDS ORDERED: MIDAZOLAM 1 MG/ML, 2ML IV PRN ×2 (08:00→12:30)
[2020-01-21] MEDS ORDERED: DIPHENHYDRAMINE 50 MG/ML, 1ML IVPush PRN ×2 (08:00→12:30)
[2020-01-21] MEDS ORDERED: ONDANSETRON 2MG/ML, 2ML IV PRN ×3 (08:00→12:30)
[2020-01-21] MEDS ORDERED: hydrALAzine 20 MG/ML, 1ML IV PRN (08:00)
[2020-01-21] MEDS ORDERED: OXYcodone 5 MG/5 ML ORAL.SOL UDC ONE ×2 (09:08→11:59)
[2020-01-21] MEDS ORDERED: MEPERIDINE/PF 25MG/ML,1ML ONE ×2 (09:08→12:02)
[2020-01-21] MEDS ORDERED: FENTANYL PF 100 MCG/2ML ONE ×3 (09:20→11:59)
[2020-01-21] MEDS ORDERED: CEFAZOLIN 1,000 MG ONE ×2 (10:54)
[2020-01-21] MEDS ORDERED: morphine SULFATE 10 MG/ML, 1ML IV PRN (11:00)
[2020-01-21] MEDS: FENTANYL PF 100 MCG/2ML IV PRN ×2 (12:00→12:05)
[2020-01-21] MEDS ORDERED: EPHEDRINE 50 MG/ML, 1ML IVPush PRN (12:30)
[2020-01-21 15:06] VITALS: BP 134/84
[2020-01-21 16:33] LABS: ALBUMIN 3.6 g/dL (3.4-5.0); CALCIUM 8.2 mg/dL (8.5-10.1)
[2020-01-21] MEDS: HYDROcodone/APAP 5/325 TABLET PO PRN (17:32)
[2020-01-21 20:02] VITALS: BP 130/79
[2020-01-21] MEDS: SODIUM CHLORIDE FLUSH 10ML SYR IVF SCH (21:00)
[2020-01-21] MEDS: METOPROLOL SUCCINATE 50 MG TAB.ER.24H PO SCH (21:06)
[2020-01-21 22:13] LABS: ALBUMIN 3.5 g/dL (3.4-5.0); CALCIUM 8.1 mg/dL (8.5-10.1)
[2020-01-21 23:45] VITALS: BP 139/84
[2020-01-22] MEDS: HYDROcodone/APAP 5/325 TABLET PO PRN (00:40)
[2020-01-22 04:24] LABS: ALBUMIN 3.4 g/dL (3.4-5.0)
[2020-01-22 04:25] VITALS: BP 125/81
[2020-01-22] MEDS: LACTATED RINGERS 1,000 ML IV SCH ×2 (04:44→08:07)
[2020-01-22 07:02] VITALS: BP 121/73
[2020-01-22] MEDS ORDERED: CALCIUM CARBONATE 500 MG TAB.CHEW PO SCH (07:14)
[2020-01-22] MEDS ORDERED: HYDROcodone/APAP 5/325 TABLET PO PRN (07:16)
[2020-01-22 08:05] VITALS: BP 123/78
[2020-01-22] MEDS: METOPROLOL SUCCINATE 50 MG TAB.ER.24H PO SCH (08:06)
[2020-01-22] MEDS: SODIUM CHLORIDE FLUSH 10ML SYR IVF SCH (08:07)
[2020-01-22] MEDS ORDERED: HYDR-3240 PO (09:06)
[2020-01-22] MEDS ORDERED: CALC400T6 PO (09:07)
[2020-01-22] MEDS ORDERED: LEVO125T PO (09:08)
[2020-01-22 10:04] LABS: ALBUMIN 3.6 g/dL (3.4-5.0); CALCIUM 8.3 mg/dL (8.5-10.1)
== END 2020-01-22 11:40 | disposition home or self-care (01) | DRG 627 ==
LOC: OUT 06:07 → 4NE 10:00 → OUT 11:15 → DCLOUNGE 01-22 11:30
PROVIDERS: ADMIT Surgery; ATTEND Surgery
PROC: 0GTJ0ZZ Resection of Thyroid Gland Isthmus, Open Approach (ICD-10-PCS; 2020-01-21)
PROC: 0GTH0ZZ Resection of Right Thyroid Gland Lobe, Open Approach (ICD-10-PCS; 2020-01-21)
PROC: 0GTG0ZZ Resection of Left Thyroid Gland Lobe, Open Approach (ICD-10-PCS; 2020-01-21)
PROC: 0W960ZZ Drainage of Neck, Open Approach (ICD-10-PCS; 2020-01-21)
PROC: 0GSL0ZZ Reposition Right Superior Parathyroid Gland, Open Approach (ICD-10-PCS; principal; 2020-01-21 07:30)
DX: E05.00 Thyrotoxicosis with diffuse goiter without thyrotoxic crisis or storm (principal); I10 Essential (primary) hypertension; R13.10 Dysphagia, unspecified; Z87.891 Personal history of nicotine dependence; S10.93XA Contusion of unspecified part of neck, initial encounter; Y83.8 Other surgical procedures as the cause of abnormal reaction of the patient, or of later complication, without mention of misadventure at the time of the procedure; Y93.89 Activity, other specified; Y92.238 Other place in hospital as the place of occurrence of the external cause; Y99.8 Other external cause status
CPT/HCPCS: 36415; 81025; 82040; 82310; 84432; 86800; 88307; G0378; J0690; J1100; J2250; J2405; J2704; J3010; C1760; J0330; J2175; J7120

== ENCOUNTER 2020-12-10 18:48 | Emergency (ER) | payer BC, MEDICAID ==
[~2020-12-10] VITALS: Ht 170.2 cm; Wt 122.7 kg
[~2020-12-10 18:48] MED LIST changes: +CALC400T6 PO; +HYDR-3240 PO; +LEVO125T PO
[2020-12-10 19:54] LABS: BASOPHILS % (AUTO) 1 % (0-1); EOSINOPHILS % (AUTO) 2 % (1-7); LYMPHOCYTES % (AUTO) 44 % (22-44); MEAN CORPUSCULAR HEMOGLOBIN 27.2 pg (27.0-34.8); MEAN CORPUSCULAR HGB CONC 33.3 g/dL (32.4-35.8); MEAN PLATELET VOLUME 8.1 fL (7.4-10.4); MONOCYTES % (AUTO) 7 % (2-9); NEUTROPHILS % (AUTO) 47 % (42-75); PLATELET COUNT 293 x10^3/uL (130-400); RED BLOOD COUNT 4.76 x10^6/uL (3.82-5.3); RED CELL DISTRIBUTION WIDTH 15.2 % (9.6-15.2)
[2020-12-10 19:57] LABS: ALANINE AMINOTRANSFERASE 31 U/L (12-78); ALBUMIN 3.7 g/dL (3.4-5.0); ANION GAP 5 mmol/L (5-15); CALCIUM 8.8 mg/dL (8.5-10.1); CHLORIDE 105 mmol/L (98-107); CREATININE 1.19 mg/dL (0.55-1.02)
--- NOTE | 2020-12-10 19:57 | NUR ---
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
[2020-12-10 20:08] LABS: ALKALINE PHOSPHATASE 66 U/L (45-117); BILIRUBIN,TOTAL 0.3 mg/dL (0.2-1.0); FREE T4 (FREE THYROXINE) 1.32 ng/dL (0.76-1.46); TOTAL PROTEIN 7.5 g/dL (6.4-8.2)
--- NOTE | 2020-12-10 20:08 | NUR ---
PT TO ROOM FROM LOBBY. PT PLACED ON CROWN BUFFER, O2 AND NIBP. TECH AT BEDSIDE TO START IV AND DRAW LABS.
[2020-12-10 20:56] LABS: MD SCAN
[2020-12-10 21:11] VITALS: BP 116/81
== END 2020-12-10 21:24 | disposition home or self-care (01) ==
LOC: ED 21:05
DX: R00.2 Palpitations (principal); R00.0 Tachycardia, unspecified; I10 Essential (primary) hypertension; Z86.39 Personal history of other endocrine, nutritional and metabolic disease
CPT/HCPCS: 36415; 80053; 83735; 84439; 84443; 84703; 85025; 93005; 99284